=== PATIENT | female | born 1940 | race Caucasian/White ===

== ENCOUNTER → 2016-09-29 | Outpatient (CLI) | payer BC, MEDICARE ==
[~2016-09-29] MED LIST: ASPI-611 PO; MOME17SP7 NS; MULT-806 PO
== END ==
LOC: IMA 14:06
PROVIDERS: ATTEND Family Medicine
DX: Z12.31 Encounter for screening mammogram for malignant neoplasm of breast (principal); Z13.820 Encounter for screening for osteoporosis; M85.89 Other specified disorders of bone density and structure, multiple sites; N64.59 Other signs and symptoms in breast; E28.319 Asymptomatic premature menopause; E28.39 Other primary ovarian failure; Z78.0 Asymptomatic menopausal state; Z90.722 Acquired absence of ovaries, bilateral